=== PATIENT | male | born 2000 | race Caucasian/White ===

== ENCOUNTER 2024-06-09 09:08 | Emergency (ER) | payer SELFPAY ==
[~2024-06-09] VITALS: Ht 180.3 cm; Wt 99.8 kg
[2024-06-09] MEDS ORDERED: IBUP-2077 PO (10:21)
[2024-06-09 10:35] VITALS: BP 124/56; PULSE 78; RESP 20; O2SAT 98
[2024-06-09] MEDS: IBUPROFEN 800 MG TAB PO ONE (10:59)
== END 2024-06-09 11:14 | disposition home or self-care (01) ==
LOC: EDH 09:08
DX: S40.011A Contusion of right shoulder, initial encounter (principal); Z90.49 Acquired absence of other specified parts of digestive tract; W18.39XA Other fall on same level, initial encounter; Y93.61 Activity, american tackle football; Y92.89 Other specified places as the place of occurrence of the external cause; Y99.8 Other external cause status
CPT/HCPCS: 73030